=== PATIENT | female | born 1995 | race Caucasian/White ===

== ENCOUNTER 2017-03-23 16:27 | Emergency (ER) | payer BC ==
[2017-03-23 16:36] VITALS: BP 116/68
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
== END 2017-03-23 17:11 ==
LOC: UCEAST 16:27
DX: J70.5 Respiratory conditions due to smoke inhalation (principal); R51 Headache; R11.0 Nausea; X00.0XXA Exposure to flames in uncontrolled fire in building or structure, initial encounter; Y93.9 Activity, unspecified; Y92.009 Unspecified place in unspecified non-institutional (private) residence as the place of occurrence of the external cause; Y99.9 Unspecified external cause status
CPT/HCPCS: 99212; G0463

== ENCOUNTER 2017-03-23 17:26 | Emergency (ER) | payer BC ==
[2017-03-23] MEDS ORDERED: Albuterol 2.5 MG/3 ML NEB.SOL* (0.083%) INH ONE (18:02)
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
[2017-03-23 19:35] VITALS: BP 111/51
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
== END 2017-03-23 19:38 | disposition home or self-care (01) ==
LOC: ED 17:26
DX: J70.5 Respiratory conditions due to smoke inhalation (principal); R05 Cough; R07.89 Other chest pain; J02.9 Acute pharyngitis, unspecified; R06.02 Shortness of breath; J45.909 Unspecified asthma, uncomplicated
CPT/HCPCS: 36415; 71020; 82375; 99282

== ENCOUNTER → 2018-12-25 | Day surgery (SDC) | payer BC ==
[~2018-12-25] MED LIST: Acetaminophen IV 1GM/100ML * 1,000 MG/100 ML VIAL IVPB ONE; Acetaminophen IV 1GM/100ML * 100 ML ONE; Clindamycin 600 MG/D5W BAG(*) 600 MG/50 ML BAG IV ONE; Ketorolac INJ* 30 MG/ML 1 ML VIAL IV PRN; Ketorolac INJ* 30 MG/ML 1 ML VIAL ONE; Lidocaine 2% PF * 5 ML VIAL ONE; Midazolam* 1 MG/ML 2 ML VIAL (2 MG) ONE; Naloxone* 0.4 MG/ML 1 ML VIAL IV PRN; Ondansetron INJ* 2 MG/ML VIAL IV PRN; Ondansetron INJ* 2 MG/ML VIAL ONE; Propofol* 10 MG/ML 20 ML BTL ONE; Scopolamine 1.5 mg* PATCH ONE; Sodium Citrate/Citric Acid* 15 ML UDC ONE; Succinylcholine* 20 MG/ML 10 ML VIAL ONE; fentaNYL* 50 MCG/ML 2 ML VIAL (100 MCG VIAL) IV PRN; fentaNYL* 50 MCG/ML 2 ML VIAL (100 MCG VIAL) ONE
[2018-12-25 14:51] VITALS: BP 146/96
--- NOTE | 2018-12-25 21:48 | OP ---
DATE OF OPERATION: 12/25/18 - [facility] DATE OF : 89 SURGEON: Moses Abdalla MD. PRE-OP DIAGNOSES: Chronic recurrent tonsillitis and an active right-sided peritonsillar abscess. POST-OP DIAGNOSES: Chronic recurrent tonsillitis and an active right-sided peritonsillar abscess. OPERATIVE PROCEDURE: Tonsillectomy under general endotracheal anesthesia. COMPLICATIONS: None. DISPOSITION: Good. SPECIMENS: Left and right tonsils. DESCRIPTION OF PROCEDURE: The patient was taken to the operating room and placed in the supine position on the operating table. General anesthesia was induced, and she was orotracheally intubated, turned and draped for the surgery. Amy-Maneul mouth gag was inserted, retraction was applied, suspended from a Arias stand. She had an attempt at incision and drainage of a right peritonsillar abscess yesterday and that incision was still there. I used that to do my tonsillectomy, and as I was using the Bovie cautery to perform the tonsillectomy, I entered the abscess cavity and pus was drained. A tonsillectomy was performed, dissecting along the capsule, removing it from the underlying pharyngeal musculature. Left tonsil was grasped, manual traction was applied. Using Bovie cautery, it was dissected along its capsule, removing it from the underlying pharyngeal musculature. Hemostasis was ensured in both tonsillar fossae using the suction cautery. The adenoid bed was examined and there was no significant adenoid tissue. Amy-Manuel mouth gag was released, retraction applied, no active bleeding. Orogastric tube was inserted into the stomach and stomach contents suctioned. Amy-Manuel mouth gag and red rubber catheter were released and removed. The patient tolerated this procedure well, no complications, and transferred to the recovery room in stable condition. [id number]/[id number] #: [id number] [facility]
== END | disposition home or self-care (01) ==
LOC: OR 13:59
PROVIDERS: ATTEND Otolaryngology
DX: J03.91 Acute recurrent tonsillitis, unspecified (principal); J45.909 Unspecified asthma, uncomplicated; R00.2 Palpitations
CPT/HCPCS: 81025; 88304; A9270-GY; J0330; J1885; J2250; J2405; J2704; J3010